=== PATIENT | male | born 1990 | race Caucasian/White ===

== ENCOUNTER → 2017-04-13 | Outpatient (CLI) | payer OTHER ==
--- NOTE | 2017-04-13 15:25 | REP ---
LUMBAR SPINE, FIVE VIEWS: HISTORY: Contusion. There is no acute fracture or subluxation. The L4-5 intervertebral disc is decreased in height consistent with disc degeneration. The facet joints are normal in appearance. IMPRESSION: Degenerative change as described above. Signed by Rosalio Brooks MD 04/13/2017 03:28 P
== END ==
LOC: M WUC 14:57
PROVIDERS: ATTEND Physician Assistant
DX: S30.0XXA Contusion of lower back and pelvis, initial encounter (principal); X58.XXXA Exposure to other specified factors, initial encounter; Y92.89 Other specified places as the place of occurrence of the external cause; Y93.9 Activity, unspecified; Y99.9 Unspecified external cause status

== ENCOUNTER 2021-08-31 03:33 | Emergency (ER) | payer OTHER, SELFPAY ==
[~2021-08-31] VITALS: Ht 190.5 cm; Wt 136.4 kg
[2021-08-31] MEDS ORDERED: NORCO 5/325MG TABLET (BULK FOR ED) PO ONE (05:05)
[2021-08-31] MEDS ORDERED: ANEXSIA, NORCO 7.5MG/325MG TABLET(HYDROCODONE/APAP) PO ONE (05:05)
[2021-08-31 06:27] VITALS: BP 132/74
== END 2021-08-31 06:36 | disposition home or self-care (01) ==
LOC: M ED 03:33
DX: S82.61XA Displaced fracture of lateral malleolus of right fibula, initial encounter for closed fracture (principal); W08.XXXA Fall from other furniture, initial encounter; F10.10 Alcohol abuse, uncomplicated; Y92.009 Unspecified place in unspecified non-institutional (private) residence as the place of occurrence of the external cause; Y93.9 Activity, unspecified; Y99.9 Unspecified external cause status

== ENCOUNTER → 2021-09-01 | Outpatient (CLI) | payer SELFPAY ==
[~2021-09-01] MED LIST: PERCOCET PO
== END ==
LOC: M SOG 14:56
PROVIDERS: ATTEND Orthopaedic Surgery Hand Surgery
DX: M25.571 Pain in right ankle and joints of right foot (principal)

== ENCOUNTER 2021-09-02 11:02 | Observation (INO) | payer SELFPAY ==
[~2021-09-02] VITALS: Ht 190.5 cm; Wt 148.8 kg
[2021-09-02] VITALS (7 sets, daily range): BP systolic 138–152; BP diastolic 50–98
[~2021-09-02 11:02] MED LIST changes: -PERCOCET PO; +ceFAZolin SOD 2 GM in IV 1 EA IV ONE
[2021-09-02] MEDS ORDERED: BUPIVACAINE HCL 0.25% 30ML VIAL As Ordered ONE (11:16)
[2021-09-02] MEDS ORDERED: HYDROmorphone HCL 2MG/ML 1ML VIAL As Ordered ONE (11:48)
[2021-09-02] MEDS ORDERED: dexameTHASONE 4 MG/ML 1ML VIAL (J1100 PER 1MG) As Ordered ONE (11:49)
[2021-09-02] MEDS ORDERED: LIDOCAINE 2% 100MG/5ML SDV (FOR ANES.) As Ordered ONE (11:49)
[2021-09-02] MEDS ORDERED: ONDANSETRON 4MG/2ML VIAL As Ordered ONE (11:49)
[2021-09-02] MEDS ORDERED: MIDAZOLAM INJ 2MG/2ML VIAL (J2250 PER 1MG) As Ordered ONE (11:49)
[2021-09-02] MEDS ORDERED: propofoL 200 MG/20 ML VIAL As Ordered ONE ×2 (11:49→12:03)
[2021-09-02] MEDS ORDERED: LR 1,000 ML IV ONE (11:50)
[2021-09-02] MEDS ORDERED: ACETAMINOPHEN 1000MG 100ML IV BTL (OFIRMEV) (J0131 PER 10MG) As Ordered ONE (11:55)
[2021-09-02] MEDS ORDERED: ceFAZolin 1GM VIAL (J0690 PER 500MG) As Ordered ONE (12:18)
[2021-09-02] MEDS ORDERED: ONDANSETRON 4MG/2ML VIAL IV PRN (13:45)
[2021-09-02] MEDS ORDERED: PERCOCET 5MG/325MG TAB PO PRN (13:45)
[2021-09-02] MEDS ORDERED: MOM 30ML SUSPENSION UDC PO PRN (13:45)
[2021-09-02] MEDS ORDERED: LR 1,000 ML IV SCH (13:45)
[2021-09-02] MEDS ORDERED: fentaNYL 100 MCG/2 ML INJECTION IV PRN (13:45)
[2021-09-02] MEDS ORDERED: ACETAMINOPHEN TAB 650MG DOSE (2X325MG) PO PRN (13:45)
[2021-09-02] MEDS: MORPHINE 4 MG/ML 1ML VIAL/SYRINGE (J2270) IV PRN ×2 (15:15→20:15)
[2021-09-02] MEDS ORDERED: amLODIPine 5 MG TAB PO ONE (16:20)
[2021-09-02] MEDS ORDERED: LACRILUBE (AKWA TEARS) OPHTH OINT 3.5 GM As Ordered ONE (17:52)
[2021-09-02] MEDS ORDERED: PHENYLephrine 500MCG 5ML (100MCG/ML) SYRINGE As Ordered ONE (18:03)
[2021-09-02] MEDS: ceFAZolin SOD 1 GM in D5W MINI-BAG PLUS 50 ML IV SCH (20:15)
[2021-09-03 02:00] VITALS: BP 149/80
[2021-09-03] MEDS: ceFAZolin SOD 1 GM in D5W MINI-BAG PLUS 50 ML IV SCH ×2 (03:58→12:19)
[2021-09-03 06:00] VITALS: BP 144/83
[2021-09-03 06:24] LABS: HEMATOCRIT 45.1 % (42.0-52.0); HEMOGLOBIN 15.6 g/dl (13.5-17.5); MEAN CORPUSCULAR HGB CONC 34.6 g/dl (32.0-36.5); MEAN CORPUSCULAR VOLUME 92.4 fl (80.0-96.0); PLATELET COUNT, AUTOMATED 222 10^3/uL (150-450); RED BLOOD COUNT 4.88 10^6/uL (4.30-6.10); WHITE BLOOD COUNT 13.7 10^3/uL (4.0-10.0)
[2021-09-03 06:45] LABS: BLOOD UREA NITROGEN 10 MG/DL (7-18); CALCIUM LEVEL 8.7 MG/DL (8.5-10.1); CARBON DIOXIDE LEVEL 27 MEQ/L (21-32); CHLORIDE LEVEL 105 MEQ/L (98-107); CREATININE FOR GFR 0.82 MG/DL (0.70-1.30); GLOMERULAR FILTRATION RATE > 60.0 (>60); GLUCOSE, FASTING 200 MG/DL (70-100); POTASSIUM SERUM 4.2 MEQ/L (3.5-5.1); SODIUM LEVEL 136 MEQ/L (136-145)
[2021-09-03] MEDS ORDERED: PERCOCET PO (08:27)
[2021-09-03] MEDS: ENOXAPARIN 40MG/0.4ML SYRINGE (J1650 PER 10MG) SC SCH (09:28)
[2021-09-03] MEDS: PERCOCET 5MG/325MG TAB PO PRN ×3 (09:28→18:12)
[2021-09-03 14:00] VITALS: BP 144/82
[2021-09-03] MEDS ORDERED: ENOXAPARIN 40MG/0.4ML SYRINGE (J1650 PER 10MG) SC SCH (14:00)
[2021-09-03 22:10] VITALS: BP 152/86
[2021-09-04] MEDS: PERCOCET 5MG/325MG TAB PO PRN ×2 (01:12→07:50)
[2021-09-04 06:00] VITALS: BP 123/84
[2021-09-04] MEDS: ENOXAPARIN 40MG/0.4ML SYRINGE (J1650 PER 10MG) SC SCH (07:49)
== END 2021-09-04 12:05 | disposition home or self-care (01) ==
LOC: M SDC 11:02 → M MS5PR 11:03
PROVIDERS: ADMIT Internal Medicine; ATTEND Internal Medicine
DX: S82.61XA Displaced fracture of lateral malleolus of right fibula, initial encounter for closed fracture (principal); W08.XXXA Fall from other furniture, initial encounter; Y92.019 Unspecified place in single-family (private) house as the place of occurrence of the external cause; Y93.9 Activity, unspecified; Y99.9 Unspecified external cause status; E66.9 Obesity, unspecified; Z91.81 History of falling
CPT/HCPCS: 20690; 27788; 36415; 76000; 80048; 85027; 96365; 96366; 96372; 96375; 96376; 97116; 97161; 97530; C1713; J0131; J0690; J1100; J1170; J1650; J2250; J2270; J2370; J2405

== ENCOUNTER → 2021-09-08 | Outpatient (CLI) | payer SELFPAY ==
[~2021-09-08] MED LIST changes: +METF-838 PO; +OXYC1TAB23 PO; +PERCOCET PO; -ceFAZolin SOD 2 GM in IV 1 EA IV ONE
== END ==
LOC: M LABSMTC 10:32
PROVIDERS: ATTEND Anesthesiology
DX: Z01.818 Encounter for other preprocedural examination (principal); Z11.52 Encounter for screening for COVID-19

== ENCOUNTER → 2021-09-08 | Outpatient (CLI) | payer SELFPAY ==
[~2021-09-08] MED LIST changes: -METF-838 PO; -OXYC1TAB23 PO
== END ==
LOC: M SOG 08:29
PROVIDERS: ATTEND Physician Assistant
DX: S82.841A Displaced bimalleolar fracture of right lower leg, initial encounter for closed fracture (principal); X58.XXXA Exposure to other specified factors, initial encounter; Y92.89 Other specified places as the place of occurrence of the external cause; Y93.89 Activity, other specified; Y99.8 Other external cause status

== ENCOUNTER 2021-09-10 08:08 | Inpatient (IN) | payer SELFPAY ==
[~2021-09-10] VITALS: Ht 190.5 cm; Wt 148.3 kg
[~2021-09-10 08:08] MED LIST changes: +BUPIVACAINE HCL 0.5% 30 ML VIAL XX ONE; +LIDOCAINE 1% MDV 20ML VIAL XX ONE; +LR 1,000 ML IV ONE; +MIDAZOLAM INJ 2MG/2ML VIAL (J2250 PER 1MG) IV PRN; +ceFAZolin SOD 2 GM in IV 1 EA IV ONE; +dexameTHASONE 10MG/1ML VIAL PRES.FREE (J1100 PER 1MG) XX ONE
[2021-09-10] MEDS ORDERED: OXYC1TAB23 PO (08:42)
[2021-09-10] MEDS ORDERED: METF-838 PO (08:42)
[2021-09-10] MEDS: fentaNYL 100 MCG/2 ML INJECTION IV PRN ×4 (09:26→14:19)
[2021-09-10] MEDS ORDERED: MIDAZOLAM INJ 2MG/2ML VIAL (J2250 PER 1MG) As Ordered ONE (09:45)
[2021-09-10] MEDS ORDERED: dexameTHASONE 4 MG/ML 1ML VIAL (J1100 PER 1MG) As Ordered ONE (09:46)
[2021-09-10] MEDS ORDERED: LIDOCAINE 2% 100MG/5ML SDV (FOR ANES.) As Ordered ONE (09:46)
[2021-09-10] MEDS ORDERED: propofoL 200 MG/20 ML VIAL As Ordered ONE (09:46)
[2021-09-10] MEDS ORDERED: ROCURONIUM BROMIDE 50 MG/5 ML VIAL As Ordered ONE (09:46)
[2021-09-10] MEDS ORDERED: ONDANSETRON 4MG/2ML VIAL As Ordered ONE (09:46)
[2021-09-10] MEDS ORDERED: fentaNYL 100 MCG/2 ML INJECTION As Ordered ONE (09:46)
[2021-09-10] MEDS ORDERED: ACETAMINOPHEN 1000MG 100ML IV BTL (OFIRMEV) (J0131 PER 10MG) As Ordered ONE (10:05)
[2021-09-10] MEDS ORDERED: HumaLOG INSULIN (NovoLOG) PER UNIT As Ordered ONE ×3 (10:24→10:36)
[2021-09-10] MEDS ORDERED: ceFAZolin 1GM VIAL (J0690 PER 500MG) As Ordered ONE (10:36)
[2021-09-10] MEDS ORDERED: METOCLOPRAMIDE INJ 10MG/2ML VIAL (J2765 PER 1) As Ordered ONE (10:40)
[2021-09-10] MEDS ORDERED: HYDROmorphone HCL 2MG/ML 1ML VIAL As Ordered ONE (10:46)
[2021-09-10] MEDS ORDERED: SUGAMMADEX SODIUM 500 MG/5 ML VIAL (BRIDION) As Ordered ONE (11:33)
[2021-09-10] MEDS ORDERED: KETOROLAC 60MG 2ML VIAL As Ordered ONE (11:33)
[2021-09-10] MEDS ORDERED: BACITRACIN OINTMENT 30GM TUBE As Ordered ONE (12:56)
[2021-09-10] MEDS ORDERED: PROMETHAZINE INJ 25 MG/ML VIAL (J2550) IV PRN (13:45)
[2021-09-10] MEDS ORDERED: ONDANSETRON 4MG/2ML VIAL IV PRN ×2 (13:45→17:20)
[2021-09-10] MEDS ORDERED: METOCLOPRAMIDE INJ 10MG/2ML VIAL (J2765 PER 1) IV PRN (13:45)
[2021-09-10] MEDS ORDERED: LR 1,000 ML IV SCH (13:45)
[2021-09-10] MEDS ORDERED: HumaLOG INSULIN (NovoLOG) PER UNIT SC ONE ×2 (13:55→14:55)
[2021-09-10] MEDS: MEPERIDINE INJ 25 MG/ML VIAL (J2175) IV PRN ×2 (13:57→14:27)
[2021-09-10] MEDS: oxyCODONE 5MG TAB PO PRN ×2 (14:10→14:40)
[2021-09-10] MEDS ORDERED: HYDROmorphone 2 MG TAB PO PRN (17:20)
[2021-09-10] MEDS ORDERED: SENNA 8.6 MG TAB (SENOKOT) PO PRN (17:20)
[2021-09-10] MEDS ORDERED: ACETAMINOPHEN TAB 650MG DOSE (2X325MG) PO PRN (17:20)
[2021-09-10] MEDS ORDERED: diphenhydrAMINE 50MG/ML VIAL (J1200) IV PRN (17:20)
[2021-09-10] MEDS ORDERED: oxyCODONE 5MG TAB PO PRN (17:20)
[2021-09-10] MEDS ORDERED: MORPHINE 4 MG/ML 1ML VIAL/SYRINGE (J2270) IV PRN (17:20)
[2021-09-10] MEDS ORDERED: zolPIDEM TARTRATE 5 MG TAB PO PRN (17:20)
[2021-09-10] MEDS ORDERED: PILL CUTTER 1 EACH XX PRN (17:40)
[2021-09-10] MEDS ORDERED: KETOROLAC 30 MG/ML 1ML VIAL IV SCH (18:00)
[2021-09-10] MEDS ORDERED: DEXTROSE 50% 50 ML SYRINGE IV PRN (18:05)
[2021-09-10] MEDS ORDERED: GLUCAGON INJ 1MG VIAL SC PRN (18:05)
[2021-09-10] MEDS ORDERED: GLUCOSE 4GM CHEW TABLET PO PRN (18:05)
[2021-09-10 20:00] VITALS: BP 144/84
[2021-09-10] MEDS: HumaLOG INSULIN (NovoLOG) PER UNIT SC SCH (20:28)
[2021-09-10 20:30] VITALS: BP 146/82
[2021-09-10] MEDS: DOCUSATE SODIUM 100MG CAPSULE PO SCH (20:32)
[2021-09-10] MEDS: ceFAZolin SOD 1 GM in D5W MINI-BAG PLUS 50 ML IV SCH (20:51)
[2021-09-10] MEDS ORDERED: HumaLOG INSULIN (NovoLOG) PER UNIT SC SCH (21:00)
[2021-09-10 21:30] VITALS: BP 152/78
[2021-09-10 22:30] VITALS: BP 152/88
[2021-09-10 23:30] VITALS: BP 150/85
[2021-09-11 00:30] VITALS: BP 155/76
[2021-09-11 02:00] VITALS: BP 148/72
[2021-09-11] MEDS: KETOROLAC 30 MG/ML 1ML VIAL IV SCH ×2 (03:34→08:42)
[2021-09-11] MEDS: ceFAZolin SOD 1 GM in D5W MINI-BAG PLUS 50 ML IV SCH ×2 (03:35→10:12)
[2021-09-11 06:00] VITALS: BP 135/82
[2021-09-11 06:42] LABS: HEMATOCRIT 43.3 % (42.0-52.0); HEMOGLOBIN 15.2 g/dl (13.5-17.5); MEAN CORPUSCULAR HEMOGLOBIN 32.3 pg (27.0-33.0); MEAN CORPUSCULAR HGB CONC 35.1 g/dl (32.0-36.5); MEAN CORPUSCULAR VOLUME 92.1 fl (80.0-96.0); PLATELET COUNT, AUTOMATED 269 10^3/uL (150-450)
[2021-09-11 07:04] LABS: BLOOD UREA NITROGEN 17 MG/DL (7-18); CALCIUM LEVEL 8.8 MG/DL (8.5-10.1); CARBON DIOXIDE LEVEL 27 MEQ/L (21-32); CHLORIDE LEVEL 108 MEQ/L (98-107); CREATININE FOR GFR 0.84 MG/DL (0.70-1.30); GLOMERULAR FILTRATION RATE > 60.0 (>60); GLUCOSE, FASTING 191 MG/DL (70-100); MAGNESIUM LEVEL 2.1 MG/DL (1.8-2.4); PHOSPHORUS LEVEL 4.2 MG/DL (2.5-4.9); POTASSIUM SERUM 4.4 MEQ/L (3.5-5.1); SODIUM LEVEL 139 MEQ/L (136-145)
[2021-09-11] MEDS: DOCUSATE SODIUM 100MG CAPSULE PO SCH (08:42)
[2021-09-11] MEDS: HumaLOG INSULIN (NovoLOG) PER UNIT SC SCH (08:42)
[2021-09-11] MEDS ORDERED: metFORMIN XR 500MG TAB *GLUCOPHAGE XR PO SCH (09:00)
[2021-09-11 09:40] VITALS: BP 135/82
[2021-09-11 10:00] VITALS: BP 124/78
[2021-09-11] MEDS ORDERED: IBUPROFEN 600MG TAB PO PRN (21:00)
== END 2021-09-11 12:25 | disposition home or self-care (01) | DRG 313 ==
LOC: M SDC 08:08 → M MS5PR 17:54
PROVIDERS: ADMIT Internal Medicine; ATTEND Internal Medicine
PROC: 0QSJ04Z Reposition Right Fibula with Internal Fixation Device, Open Approach (ICD-10-PCS; principal; 2021-09-10 09:30)
DX: S82.841A Displaced bimalleolar fracture of right lower leg, initial encounter for closed fracture (principal); E11.9 Type 2 diabetes mellitus without complications; W07.XXXA Fall from chair, initial encounter; Y92.019 Unspecified place in single-family (private) house as the place of occurrence of the external cause

== ENCOUNTER → 2021-09-19 | Outpatient (CLI) | payer SELFPAY ==
[~2021-09-19] MED LIST changes: -BUPIVACAINE HCL 0.5% 30 ML VIAL XX ONE; -LIDOCAINE 1% MDV 20ML VIAL XX ONE; -LR 1,000 ML IV ONE; +METF-838 PO; -MIDAZOLAM INJ 2MG/2ML VIAL (J2250 PER 1MG) IV PRN; +OXYC1TAB23 PO; -ceFAZolin SOD 2 GM in IV 1 EA IV ONE; -dexameTHASONE 10MG/1ML VIAL PRES.FREE (J1100 PER 1MG) XX ONE
== END ==
LOC: M SOG 09:03
PROVIDERS: ATTEND Physician Assistant
DX: S93.432A Sprain of tibiofibular ligament of left ankle, initial encounter (principal); X58.XXXA Exposure to other specified factors, initial encounter; Y92.89 Other specified places as the place of occurrence of the external cause; Y93.9 Activity, unspecified; Y99.9 Unspecified external cause status

== ENCOUNTER → 2021-10-27 | Outpatient (CLI) | payer BC, SELFPAY | LOC: M SOG 10:03 | PROVIDERS: ATTEND Physician Assistant | DX: S82.61XD Displaced fracture of lateral malleolus of right fibula, subsequent encounter for closed fracture with routine healing (principal) ==

== ENCOUNTER → 2021-11-13 | Outpatient (CLI) | payer BC | LOC: M SOG 08:34 | PROVIDERS: ATTEND Physician Assistant | DX: S82.61XD Displaced fracture of lateral malleolus of right fibula, subsequent encounter for closed fracture with routine healing (principal) ==

== ENCOUNTER → 2021-11-20 | Outpatient (CLI) | payer BC | LOC: M SOG 11:36 | PROVIDERS: ATTEND Physician Assistant | DX: S82.61XD Displaced fracture of lateral malleolus of right fibula, subsequent encounter for closed fracture with routine healing (principal) ==

== ENCOUNTER → 2022-01-15 | Outpatient (CLI) | payer BC | LOC: M SOG 08:51 | PROVIDERS: ATTEND Orthopaedic Surgery Hand Surgery | DX: S82.61XD Displaced fracture of lateral malleolus of right fibula, subsequent encounter for closed fracture with routine healing (principal) ==

== ENCOUNTER → 2024-07-11 | Outpatient (REF) | payer BC, OTHER ==
[2024-07-11 14:35] LABS: HEMATOCRIT 46.6 % (42.0-52.0); HEMOGLOBIN 16.1 g/dl (13.5-17.5); MEAN CORPUSCULAR HEMOGLOBIN 31.8 pg (27.0-33.0); MEAN CORPUSCULAR HGB CONC 34.5 g/dl (32.0-36.5); MEAN CORPUSCULAR VOLUME 92.1 fl (80.0-96.0); PLATELET COUNT, AUTOMATED 237 10^3/uL (150-450); RED BLOOD COUNT 5.06 10^6/uL (4.30-6.10)
== END ==
LOC: M LAB REF 12:17
PROVIDERS: ATTEND Student in an Organized Health Care Education/Training Program
DX: Z00.01 Encounter for general adult medical examination with abnormal findings (principal)

== ENCOUNTER → 2024-09-08 | Outpatient (REF) | payer OTHER ==
[2024-09-08 14:22] LABS: ALBUMIN 3.8 G/DL (3.2-5.2); ALKALINE PHOSPHATASE 64 U/L (40-129); ALT/SGPT 56 U/L (7.0-40); AST/SGOT 28 U/L (<34); BILIRUBIN,TOTAL 0.7 MG/DL (0.3-1.2); BLOOD UREA NITROGEN 13 MG/DL (9-23); CALCIUM LEVEL 8.8 MG/DL (8.5-10.1); CARBON DIOXIDE LEVEL 27 MMOL/L (20-31); CHLORIDE LEVEL 104 MMOL/L (98-107); CHOLESTEROL LEVEL 177 MG/DL (<200); CHOLESTEROL RISK RATIO 5.67 (<5); CREATININE FOR GFR 0.74 MG/DL (0.70-1.30); GLOMERULAR FILTRATION RATE > 60.0 (>60); GLUCOSE, FASTING 197 MG/DL (60-100); HDL CHOLESTEROL 31.2 MG/DL (>40); NON-HDL-C 145.8 MG/DL; POTASSIUM SERUM 4.8 MMOL/L (3.5-5.1); SODIUM LEVEL 137 MMOL/L (136-145); TOTAL PROTEIN 7.5 G/DL (5.7-8.2); TRIGLYCERIDES LEVEL 154 MG/DL (<150)
== END ==
LOC: M LAB REF 12:38
PROVIDERS: ATTEND Student in an Organized Health Care Education/Training Program
DX: Z68.39 Body mass index [BMI] 39.0-39.9, adult (principal)

== ENCOUNTER 2025-04-05 09:23 | Emergency (ER) | payer OTHER ==
[~2025-04-05] VITALS: Ht 190.5 cm; Wt 143.4 kg
[2025-04-05 12:25] VITALS: BP 155/90; TEMP 98; O2SAT 99
== END 2025-04-05 12:30 | disposition home or self-care (01) ==
LOC: M ED 09:23
DX: S80.01XA Contusion of right knee, initial encounter (principal); S80.811A Abrasion, right lower leg, initial encounter; W01.198A Fall on same level from slipping, tripping and stumbling with subsequent striking against other object, initial encounter; E11.9 Type 2 diabetes mellitus without complications; Z79.4 Long term (current) use of insulin; Z79.899 Other long term (current) drug therapy; Y92.89 Other specified places as the place of occurrence of the external cause; Y93.89 Activity, other specified; Y99.0 Civilian activity done for income or pay